=== PATIENT | female | born 1950 | race Caucasian/White ===

== ENCOUNTER 2018-02-06 18:45 | Observation (INO) | payer MEDICARE ==
[2018-02-06] MEDS ORDERED: Sodium Chloride 0.9% 10 ML Syringe FLUSH PRN (18:48)
[2018-02-06] MEDS ORDERED: Aspirin 81 MG Tab.Chew PO ONE (18:48)
[2018-02-06] MEDS ORDERED: Nitroglycerin 0.4 MG Tab.SL SL PRN (18:48)
[2018-02-06] MEDS ORDERED: Sodium Chloride 0.9% 2.5 ML Syringe FLUSH PRN (18:48)
[2018-02-06] MEDS ORDERED: Ketorolac 30 MG/ML SDV IVPUSH ONE (19:04)
--- NOTE | 2018-02-06 19:07 | EDM.PDOC ---
ED HPI GENERAL MEDICAL PROBLEM - General Chief Complaint: Chest Pain Stated Complaint: CHEST DISCOMFORT Time Seen by Provider: 02/06/18 18:47 Source of Information: Reports: Patient History Limitations: Reports: No Limitations - History of Present Illness INITIAL COMMENTS - FREE TEXT/NARRATIVE: HISTORY AND PHYSICAL: History of present illness: Patient is a 67-year-old female who presents to the emergency room today with complaints of head and neck pain after falling yesterday morning. She states she tripped and fell hitting the back of her head, no loss of consciousness. She does have muscular tenderness to the trapezius muscles bilaterally. This morning she started to have right sided anterior chest pain and numbness to her left breast. She denies any fever, chills, shortness of breath, cough. Denies any abdominal pain, nausea, vomiting, diarrhea or constipation. No headache, change in vision or change in mentation. Past medical history of quadruple bypass and Type DM II. Review of systems: As per history of present illness and below otherwise all systems reviewed and negative. Past medical history: As per history of present illness and as reviewed below otherwise noncontributory. Surgical history: As per history of present illness and as reviewed below otherwise noncontributory. Social history: No reported history of drug or alcohol abuse. Family history: As per history of present illness and as reviewed below otherwise noncontributory. Physical exam: General: Well-developed and well-nourished 67-year-old female. Alert and oriented. Nontoxic appearing and in no acute distress. HEENT: Atraumatic, normocephalic, pupils equal and reactive bilaterally, negative for conjunctival pallor or scleral icterus, mucous membranes moist, throat clear, neck supple, nontender, trachea midline. No drooling or trismus noted. No meningeal signs Lungs: Clear to auscultation, breath sounds equal bilaterally, chest nontender. Heart: S1S2, regular rate and rhythm without overt murmur Abdomen: Soft, nondistended, nontender. Negative for masses or hepatosplenomegaly. Negative for costovertebral tenderness. Pelvis: Stable nontender. Genitourinary: Deferred. Rectal: Deferred. Skin: Intact, warm, dry. No lesions or rashes noted. Extremities: Atraumatic, negative for cords or calf pain. Neurovascular unremarkable. Neuro: Awake, alert, oriented. Cranial nerves II through XII unremarkable. Cerebellum unremarkable. Motor and sensory unremarkable throughout. Exam nonfocal. Notes: There is no previous medical records or EKGs for comparison. A cardiac workup along with head and neck CT will be completed at this time. Patient's vitals are currently stable. Head and neck CT are within normal limits. Chest x-ray shows no evidence of pneumonia or infiltrate. Lab work is unremarkable. Though nonreproducible, patient's pain appears to be musculature in nature but Due to the patient's history and previous complaints and would like to keep her for observation with telemetry to do serial troponins. Patient is aware of this and agreeable to staying. She is currently pain-free. Diagnostics: CBC, CMP, troponin, EKG, one view chest, CT head, CT cervical spine Therapeutics: Aspirin, nitroglycerin, Toradol, IV fluid Impression: Chest pain r/o ID Head injury Plan: Observation with Telemetry Definitive disposition and diagnosis as appropriate pending reevaluation and review of above. Chest Pain Score (Numeric/FACES): 4 - Related Data Allergies Allergy/AdvReac Type Severity Reaction Status Date / Time No Known Allergies Allergy Verified 02/06/18 18:59 Home Meds: Home Meds Aspirin [Halfprin] 81 mg PO DAILY 02/06/18 [History] Fenofibrate Nanocrystallized [Fenofibrate] 48 mg PO DAILY 02/06/18 [History] Insulin Degludec [Tresiba Flextouch U-200] 8 units SQ DAILY 02/06/18 [History] Losartan/Hydrochlorothiazide [Losartan-HCTZ 100-25 MG] 1 each PO DAILY 02/06/18 [History] Metoprolol Tartrate [Lopressor] 25 mg PO Q12HR 02/06/18 [History] Zolpidem [Ambien] 5 mg PO BEDTIME PRN 02/06/18 [History] atorvaSTATin [Lipitor] 40 mg PO BEDTIME 02/06/18 [History] glipiZIDE [Glipizide ER] 10 mg PO DAILY 02/06/18 [History] metFORMIN HCl [Metformin HCl ER] 1,000 mg PO DAILY 02/06/18 [History] Past Medical History Cardiovascular History: Reports: Bypass Endocrine/Metabolic History: Reports: Diabetes, Type II Social & Family History - Tobacco Use Smoking Status *Q: Current Every Day Smoker Years of Tobacco use: 40 Packs/Tins Daily: 0.5 ED ROS GENERAL - Review of Systems Review Of Systems: ROS reveals no pertinent complaints other than HPI. ED EXAM, GENERAL - Physical Exam Exam: See Below (See dictation) Course - Vital Signs Last Recorded V/S: Last Vital Signs Temp Pulse 67 02/06/18 18:57 Resp 18 02/06/18 18:57 BP 154/50 H 02/06/18 18:57 Pulse Ox 96 02/06/18 18:57 - Orders/Labs/Meds Orders: Active Orders 24 hr Category Date Time Status EKG Documentation Completion [RC] STAT Care 02/06/18 18:47 Active Cervical Spine wo Cont [CT] Stat Exams 02/06/18 19:03 Taken Chest 1V Frontal [CR] Stat Exams 02/06/18 18:47 Taken Head wo Cont [CT] Stat Exams 02/06/18 18:59 Taken CBC WITH AUTO DIFF [HEME] Stat Lab 02/06/18 18:55 Received COMPREHENSIVE METABOLIC PN,CMP [CHEM] Stat Lab 02/06/18 18:55 Received TROPONIN I [CHEM] Stat Lab 02/06/18 18:55 Received Nitroglycerin [Nitrostat] Med 02/06/18 18:48 Active 0.4 mg SL Q5M PRN Sodium Chloride 0.9% [Normal Saline] 1,000 ml Med 02/06/18 19:09 Active IV STAT Sodium Chloride 0.9% [Saline Flush] Med 02/06/18 18:48 Active 10 ml FLUSH ASDIRECTED PRN Sodium Chloride 0.9% [Saline Flush] Med 02/06/18 18:48 Active 2.5 ml FLUSH ASDIRECTED PRN Saline Lock Insert [OM.PC] Stat Oth 02/06/18 18:48 Ordered Medication Orders Sodium Chloride (Normal Saline) 1,000 mls @ 125 mls/hr IV STAT ONE Stop: 02/07/18 03:08 Last Admin: 02/06/18 20:44 Dose: 125 mls/hr Nitroglycerin (Nitrostat) 0.4 mg SL Q5M PRN PRN Reason: Chest Pain Sodium Chloride (Saline Flush) 10 ml FLUSH ASDIRECTED PRN PRN Reason: Keep Vein Open Sodium Chloride (Saline Flush) 2.5 ml FLUSH ASDIRECTED PRN PRN Reason: Keep Vein Open Meds: Medications Generic Name Dose Route Start Last Admin Trade Name Freq PRN Reason Stop Dose Admin Sodium Chloride 1,000 mls @ 125 mls/hr 02/06/18 19:09 02/06/18 20:44 Normal Saline IV 02/07/18 03:08 125 mls/hr STAT ONE Administration Nitroglycerin 0.4 mg 02/06/18 18:48 Nitrostat SL Q5M PRN Chest Pain Sodium Chloride 10 ml 02/06/18 18:48 Saline Flush FLUSH ASDIRECTED PRN Keep Vein Open Sodium Chloride 2.5 ml 02/06/18 18:48 Saline Flush FLUSH ASDIRECTED PRN Keep Vein Open Discontinued Medications Generic Name Dose Route Start Last Admin Trade Name Freq PRN Reason Stop Dose Admin Aspirin 324 mg 02/06/18 18:48 02/06/18 20:44 Aspirin PO 02/06/18 18:49 324 mg ONETIME ONE Administration Ketorolac Tromethamine 30 mg 02/06/18 19:04 02/06/18 20:45 Toradol IVPUSH 02/06/18 19:05 30 mg ONETIME ONE Administration Departure - Departure Time of Disposition: 20:51 Disposition: Refer to Observation Clinical Impression: Chest pain, rule out acute myocardial infarction Head injury Qualifiers: Encounter type: initial encounter Qualified Code(s): S09.90XA - Unspecified injury of head, initial encounter Referrals: PCP,None [Primary Care Provider] - Forms: ED Department Discharge - My Orders Last 24 Hours: My Active Orders 02/06/18 18:47 EKG Documentation Completion [RC] STAT Chest 1V Frontal [CR] Stat 02/06/18 18:48 Nitroglycerin [Nitrostat] 0.4 mg SL Q5M PRN Sodium Chloride 0.9% [Saline Flush] 10 ml FLUSH ASDIRECTED PRN Sodium Chloride 0.9% [Saline Flush] 2.5 ml FLUSH ASDIRECTED PRN Saline Lock Insert [OM.PC] Stat 02/06/18 18:55 CBC WITH AUTO DIFF [HEME] Stat COMPREHENSIVE METABOLIC PN,CMP [CHEM] Stat TROPONIN I [CHEM] Stat 02/06/18 18:59 Head wo Cont [CT] Stat 02/06/18 19:03 Cervical Spine wo Cont [CT] Stat 02/06/18 19:09 Sodium Chloride 0.9% [Normal Saline] 1,000 ml IV STAT - Assessment/Plan Last 24 Hours: My Active Orders 02/06/18 18:47 EKG Documentation Completion [RC] STAT Chest 1V Frontal [CR] Stat 02/06/18 18:48 Nitroglycerin [Nitrostat] 0.4 mg SL Q5M PRN Sodium Chloride 0.9% [Saline Flush] 10 ml FLUSH ASDIRECTED PRN Sodium Chloride 0.9% [Saline Flush] 2.5 ml FLUSH ASDIRECTED PRN Saline Lock Insert [OM.PC] Stat 02/06/18 18:55 CBC WITH AUTO DIFF [HEME] Stat COMPREHENSIVE METABOLIC PN,CMP [CHEM] Stat TROPONIN I [CHEM] Stat 02/06/18 18:59 Head wo Cont [CT] Stat 02/06/18 19:03 Cervical Spine wo Cont [CT] Stat 02/06/18 19:09 Sodium Chloride 0.9% [Normal Saline] 1,000 ml IV STAT
[2018-02-06] MEDS ORDERED: Sodium Chloride 0.9% 1,000 ML IV ONE (19:09)
[2018-02-06 21:05] LABS: CHLORIDE,CL 102 mmol/L (98-107); SODIUM,NA 134 mmol/L (136-145)
[2018-02-06] MEDS ORDERED: Ondansetron 4 MG/2 ML SDV IVPUSH PRN (22:32)
[2018-02-06] MEDS: Acetaminophen 325 MG Tab PO PRN (23:26)
[2018-02-06] MEDS ORDERED: Pantoprazole 40 MG Vial ONE (23:42)
[2018-02-06] MEDS ORDERED: Pantoprazole 40 MG Tab.CR ONE (23:49)
[2018-02-07] MEDS: Acetaminophen 325 MG Tab PO PRN (06:44)
[2018-02-07] MEDS ORDERED: Insulin Aspart 100 Units/ML 3 ML Pen SUBCUT SCH (07:30)
[2018-02-07] MEDS ORDERED: Hydrochlorothiazide/Losartan 12.5-50 mg Tab PO SCH ×2 (09:00→21:00)
[2018-02-07] MEDS ORDERED: Metoprolol Tartrate 25 MG Tab PO SCH (09:00)
[2018-02-07] MEDS ORDERED: FENOFIBRATE 48 MG PO SCH (09:00)
--- NOTE | 2018-02-07 09:30 | PCM.HP ---
H&P History of Present Illness - General Date of Service: 02/06/18 Admit Problem/Dx: Admission Diagnosis/Problem Admission Diagnosis/Problem Chest pain, rule out acute myocardial infarction - History of Present Illness Initial Comments - Free Text/Narative: 67 yo female with pmh of CAD, CABG, HTN, and DM who fell yesterday and landed on her back and head. She has reported head and neck pain and on the day of admission she had some right sided chest wall pain. In the ED she had normal CT head and neck. EKG and troponin did not show any signs of ischemia. The ED provider referred for admission to rule out ACS. Chest Pain Score (Numeric/FACES): 1 Head Pain Score (Numeric/FACES): 4 - Related Data Allergies/Adverse Reactions: Allergies Allergy/AdvReac Type Severity Reaction Status Date / Time No Known Allergies Allergy Verified 02/06/18 18:59 Home Medications: Home Meds Aspirin [Halfprin] 81 mg PO DAILY 02/06/18 [History] Fenofibrate Nanocrystallized [Fenofibrate] 48 mg PO DAILY 02/06/18 [History] Insulin Degludec [Tresiba Flextouch U-200] 8 units SQ DAILY 02/06/18 [History] Losartan/Hydrochlorothiazide [Losartan-HCTZ 100-25 MG] 1 each PO DAILY 02/06/18 [History] Metoprolol Tartrate [Lopressor] 25 mg PO Q12HR 02/06/18 [History] Zolpidem [Ambien] 5 mg PO BEDTIME PRN 02/06/18 [History] atorvaSTATin [Lipitor] 40 mg PO BEDTIME 02/06/18 [History] glipiZIDE [Glipizide ER] 10 mg PO DAILY 02/06/18 [History] metFORMIN HCl [Metformin HCl ER] 1,000 mg PO DAILY 02/06/18 [History] Past Medical History HEENT History: Reports: Glaucoma Cardiovascular History: Reports: Bypass Endocrine/Metabolic History: Reports: Diabetes, Type II - Past Surgical History HEENT Surgical History: Reports: Other (See Below) Other HEENT Surgeries/Procedures: UNKNOWN EYE SURGERY Female Surgical History: Reports: Tubal Ligation Social & Family History - Tobacco Use Smoking Status *Q: Current Every Day Smoker Years of Tobacco use: 48 Packs/Tins Daily: 0.2 Used Tobacco, but Quit: Yes Month/Year Tobacco Last Used: JANUARY/2018 Second Hand Smoke Exposure: No - Caffeine Use Caffeine Use: Reports: None - Recreational Drug Use Recreational Drug Use: No H&P Review of Systems - Review of Systems: Review Of Systems: ROS reveals no pertinent complaints other than HPI. Exam - Exam Exam: See Below - Vital Signs Vital Signs: Last Vital Signs Temp 36.2 C 02/07/18 08:00 Pulse 54 L 02/07/18 08:10 Resp 16 02/07/18 08:00 BP 129/58 L 02/07/18 08:10 Pulse Ox 98 02/07/18 08:00 Weight: 162.4 kg - Exam General: Alert, Oriented Neck: Supple, Trachea Midline Lungs: Clear to Auscultation, Normal Respiratory Effort Cardiovascular: Regular Rate, Regular Rhythm GI/Abdominal Exam: Normal Bowel Sounds, Soft, Non-Tender Extremities: Normal Inspection, Normal Range of Motion, Non-Tender. No: No Pedal Edema Skin: Warm, Dry, Intact - Patient Data Lab Results Last 24 hrs: Laboratory Results - last 24 hr 02/06/18 02/06/18 02/07/18 Range/Units 18:55 18:55 00:40 WBC 8.59 (4.0-11.0) K/uL RBC 3.93 L (4.30-5.90) M/uL Hgb 12.1 (12.0-16.0) g/dL Hct 33.9 L (36.0-46.0) % MCV 86.3 (80.0-98.0) fL MCH 30.8 (27.0-32.0) pg MCHC 35.7 (31.0-37.0) g/dL RDW Std Deviation 40.4 (28.0-62.0) fl RDW Coeff of Cha 13 (11.0-15.0) % Plt Count 232 (150-400) K/uL MPV 9.50 (7.40-12.00) fL Neut % (Auto) 56.0 (48.0-80.0) % Lymph % (Auto) 28.9 (16.0-40.0) % [place] % (Auto) 10.6 (0.0-15.0) % Eos % (Auto) 4.0 (0.0-7.0) % Baso % (Auto) 0.5 (0.0-1.5) % Neut # (Auto) 4.8 (1.4-5.7) K/uL Lymph # (Auto) 2.5 H (0.6-2.4) K/uL [place] # (Auto) 0.9 H (0.0-0.8) K/uL Eos # (Auto) 0.3 (0.0-0.7) K/uL Baso # (Auto) 0.0 (0.0-0.1) K/uL Nucleated RBC % 0.0 /100WBC Nucleated RBCs # 0 K/uL Sodium 134 L (136-145) mmol/L Potassium 3.8 (3.5-5.1) mmol/L Chloride 102 (98-107) mmol/L Carbon Dioxide 25.7 (21.0-32.0) mmol/L BUN 27 H (7.0-18.0) mg/dL Creatinine 1.2 H (0.6-1.0) mg/dL Est Cr Clr Drug Dosing 34.80 mL/min Estimated GFR (MDRD) 44.9 ml/min Glucose 283 H (74-106) mg/dL POC Glucose (60-110) mg/dL Calcium 9.3 (8.5-10.1) mg/dL Total Bilirubin 0.4 (0.2-1.0) mg/dL AST 29 (15-37) IU/L ALT 39 (14-63) IU/L Alkaline Phosphatase 124 H (46-116) U/L Troponin I < 0.050 < 0.050 (0.000-0.056) ng/mL Total Protein 7.3 (6.4-8.2) g/dL Albumin 3.8 (3.4-5.0) g/dL Globulin 3.5 (2.0-3.5) g/dL Albumin/Globulin Ratio 1.1 L (1.3-2.8) 02/07/18 02/07/18 Range/Units 06:26 07:04 WBC (4.0-11.0) K/uL RBC (4.30-5.90) M/uL Hgb (12.0-16.0) g/dL Hct (36.0-46.0) % MCV (80.0-98.0) fL MCH (27.0-32.0) pg MCHC (31.0-37.0) g/dL RDW Std Deviation (28.0-62.0) fl RDW Coeff of Cha (11.0-15.0) % Plt Count (150-400) K/uL MPV (7.40-12.00) fL Neut % (Auto) (48.0-80.0) % Lymph % (Auto) (16.0-40.0) % [place] % (Auto) (0.0-15.0) % Eos % (Auto) (0.0-7.0) % Baso % (Auto) (0.0-1.5) % Neut # (Auto) (1.4-5.7) K/uL Lymph # (Auto) (0.6-2.4) K/uL [place] # (Auto) (0.0-0.8) K/uL Eos # (Auto) (0.0-0.7) K/uL Baso # (Auto) (0.0-0.1) K/uL Nucleated RBC % /100WBC Nucleated RBCs # K/uL Sodium (136-145) mmol/L Potassium (3.5-5.1) mmol/L Chloride (98-107) mmol/L Carbon Dioxide (21.0-32.0) mmol/L BUN (7.0-18.0) mg/dL Creatinine (0.6-1.0) mg/dL Est Cr Clr Drug Dosing mL/min Estimated GFR (MDRD) ml/min Glucose (74-106) mg/dL POC Glucose 61 (60-110) mg/dL Calcium (8.5-10.1) mg/dL Total Bilirubin (0.2-1.0) mg/dL AST (15-37) IU/L ALT (14-63) IU/L Alkaline Phosphatase (46-116) U/L Troponin I < 0.050 (0.000-0.056) ng/mL Total Protein (6.4-8.2) g/dL Albumin (3.4-5.0) g/dL Globulin (2.0-3.5) g/dL Albumin/Globulin Ratio (1.3-2.8) Result Diagrams: 02/06/18 18:55 02/06/18 18:55 Problem List Initiated/Reviewed/Updated: Yes Orders Last 24hrs: Active Orders 24 hr Category Date Time Status Admission Status [Patient Status] [ADT] Stat ADT 02/06/18 20:53 Active Accu Check [Blood Glucose Check, Bedside] [RC] TIDAC Care 02/06/18 22:29 Active Communication Order [RC] [id number] Care 02/07/18 09:00 Active Ready for Discharge [RC] PER UNIT ROUTINE Care 02/07/18 09:24 Ordered [employer] Discontinue [Cardiac Monitoring Care 02/07/18 09:25 Active Discontinue] [RC] Click to Edit Telemetry Monitoring [Cardiac Monitoring] [RC] Q8H Care 02/06/18 21:15 Active ADA Diabetic [Citizen [place] Diabetic Association Diet] [DIET Diet 02/07/18 Breakfast Active ] Cervical Spine wo Cont [CT] Stat Exams 02/06/18 19:03 Taken Chest 1V Frontal [CR] Stat Exams 02/06/18 18:47 Taken Head wo Cont [CT] Stat Exams 02/06/18 18:59 Taken Acetaminophen [Tylenol] Med 02/06/18 22:34 Active 650 mg PO Q6H PRN Aspirin [Halfprin] Med 02/07/18 21:00 Active 81 mg PO BEDTIME Hydrochlorothiazide/Losartan [Hyzaar 50-12.5 MG] Med 02/07/18 21:00 Active 2 tab PO BEDTIME Insulin Aspart [NovoLOG] Med 02/07/18 07:30 Active See Protocol SUBCUT TIDAC Metoprolol Tartrate [Lopressor] Med 02/07/18 09:00 Active 25 mg PO Q12HR Nitroglycerin [Nitrostat] Med 02/06/18 18:48 Active 0.4 mg SL Q5M PRN Ondansetron [Zofran] Med 02/06/18 22:32 Active 4 mg IVPUSH Q3H PRN Pantoprazole [ProTONIX] Med 02/07/18 21:00 Active 40 mg PO BEDTIME Patient's Own Medication [Ptom] Med 02/07/18 09:00 Active 1 each PO DAILY Sodium Chloride 0.9% [Saline Flush] Med 02/06/18 18:48 Active 10 ml FLUSH ASDIRECTED PRN Sodium Chloride 0.9% [Saline Flush] Med 02/06/18 18:48 Active 2.5 ml FLUSH ASDIRECTED PRN Zaleplon [Sonata] Med 02/06/18 22:29 Active 5 mg PO BEDTIME PRN atorvaSTATin [Lipitor] Med 02/07/18 21:00 Active 40 mg PO BEDTIME Saline Lock Insert [OM.PC] Stat Oth 02/06/18 18:48 Ordered Medication Orders Acetaminophen (Tylenol) 650 mg PO Q6H PRN PRN Reason: Pain Last Admin: 02/07/18 06:44 Dose: 650 mg Admin: 02/06/18 23:26 Dose: 650 mg Aspirin (Halfprin) 81 mg PO BEDTIME ELLIE Atorvastatin Calcium (Lipitor) 40 mg PO BEDTIME ELLIE HCTZ/Losartan Potassium (Hyzaar 50-12.5 Mg) 2 tab PO BEDTIME ELLIE Insulin Aspart (Novolog) 0 unit SUBCUT TIDAC [facility]; Protocol Last Admin: 02/07/18 06:53 Dose: Not Given Metoprolol Tartrate (Lopressor) 25 mg PO Q12HR [facility] Last Admin: 02/07/18 08:10 Dose: 25 mg Nitroglycerin (Nitrostat) 0.4 mg SL Q5M PRN PRN Reason: Chest Pain Ondansetron HCl (Zofran) 4 mg IVPUSH Q3H PRN PRN Reason: Nausea Pantoprazole Sodium (Protonix) 40 mg PO BEDTIME [facility] Last Admin: 02/06/18 23:50 Dose: 40 mg Fenofibrate 48 Mg 1 each PO DAILY [facility] Last Admin: 02/07/18 08:11 Dose: 1 each Sodium Chloride (Saline Flush) 10 ml FLUSH ASDIRECTED PRN PRN Reason: Keep Vein Open Sodium Chloride (Saline Flush) 2.5 ml FLUSH ASDIRECTED PRN PRN Reason: Keep Vein Open Zaleplon (Sonata) 5 mg PO BEDTIME PRN PRN Reason: Sleep Assessment/Plan Comment:: 67 yo female who has ruled out for acute coronary syndrome with serial negative cardiac enzymes. Patient was discharged home to have follow up with her manager of care.
[2018-02-07] MEDS ORDERED: Pantoprazole 40 MG Tab.CR PO SCH (21:00)
[2018-02-07] MEDS ORDERED: Aspirin 81 MG Tab.EC PO SCH (21:00)
[2018-02-07] MEDS ORDERED: atorvaSTATin 40 MG Tab PO SCH (21:00)
--- NOTE | 2018-02-08 20:24 | CT ---
EXAM DATE: 02/06/18 PATIENT'S AGE: 67 Patient: MARCELLE RODRIGUEZ Facility: [place], [place] Site . Site : 1950 Study: CT Spine Cervical [id number]/7/2018 8:10:53 PM Ordering Physician: Doctor Dickinson Final Report: INDICATION: Fell and hit head yesterday. Neck pain TECHNIQUE: CT cervical spine without i.v. contrast. Coronal and sagittal reformats were obtained. CONTRAST: None COMPARISON: None FINDINGS: Alignment: Mild kyphosis of the upper cervical spine is noted. Trace anterolisthesis C3-4 seen. Bone: No acute fractures or aggressive bone lesions are identified. Disc: There are degenerative disc disease noted at C4-5, C5-6 and C6-7. Scattered facet osteoarthritis is noted bilaterally. Soft tissue: The prevertebral soft tissues are unremarkable in appearance. The visualized lung apices and mediastinum are unremarkable. IMPRESSION: 1. No acute osseous injuries are identified. Dictated by Lex Perez MD @ 02/06/2018 8:39:11 PM Please note that all CT scans at this facility use dose modulation, iterative reconstruction, and/or weight-based dosing when appropriate to reduce radiation dose to as low as reasonably achievable. Dictated by: Lex Perez MD @ 02/06/2018 20:39:14 (Electronic Signature) Report Signed by Proxy. [facility]
--- NOTE | 2018-02-08 20:25 | CR ---
EXAM DATE: 02/06/18 PATIENT'S AGE: 67 Patient: MARCELLE RODRIGUEZ Facility: [place], [place] Site . Site : 1950 Study: XRay Chest [id number]/7/[id number] 8:13:51 PM Ordering Physician: Doctor Dickinson Final Report: INDICATION: Chest pain. History of quadruple bypass. TECHNIQUE: Chest 1 view. COMPARISON: None FINDINGS: Cardiovascular and mediastinum: Heart size and vasculature are normal in caliber and appearance. Mediastinum is within normal limits. Sequelae of cardiac surgery noted. Lungs and pleural space: Lungs are clear. No pleural effusion. No pneumothorax. Bones and soft tissues: No acute findings. IMPRESSION: No acute pulmonary process. Dictated by Lemuel Arana MD @ 02/06/2018 8:36:23 PM Dictated by: Lemuel Arana MD @ 02/06/2018 20:36:28 (Electronic Signature) Report Signed by Proxy. [facility]
--- NOTE | 2018-02-08 20:26 | CT ---
EXAM DATE: 02/06/18 PATIENT'S AGE: 67 Patient: MARCELLE RODRIGUEZ Facility: [place], [place] Site . Site : 1950 Study: CT Head [id number]/7/[id number] 8:14:27 PM Ordering Physician: Doctor Dickinson Final Report: INDICATION: Fell and hit head yesterday TECHNIQUE: Head CT without contrast. COMPARISON: None FINDINGS: CSF spaces: Within normal limits for age. Brain parenchyma: There are very mild nonspecific low attenuation white matter changes consistent with chronic microvascular disease. No sign of mass, hemorrhage, or midline shift. Skull base and calvarium: The visualized paranasal sinuses and mastoid air cells demonstrate no acute or significant findings. The visualized orbits are grossly unremarkable. No skull fractures. There is intracranial atherosclerosis. IMPRESSION: 1. No acute findings. 2. Mild nonspecific white matter disease, typical of chronic microvascular disease. Please note that all CT scans at this facility use dose modulation, iterative reconstruction, and/or weight-based dosing when appropriate to reduce radiation dose to as low as reasonably achievable. Dictated by Davina Parsons MD @ Feb 06 2018 8:39PM (Electronic Signature) Report Signed by Proxy. [facility]
== END 2018-02-07 09:54 | disposition home or self-care (01) ==
LOC: MW.ED 18:45 → MW.ICU 20:53
PROVIDERS: ADMIT Internal Medicine; ATTEND Internal Medicine
DX: R07.9 Chest pain, unspecified (principal); I25.10 Atherosclerotic heart disease of native coronary artery without angina pectoris; I10 Essential (primary) hypertension; E11.9 Type 2 diabetes mellitus without complications; F17.210 Nicotine dependence, cigarettes, uncomplicated; Z79.4 Long term (current) use of insulin; Z79.82 Long term (current) use of aspirin; Z79.899 Other long term (current) drug therapy; Z91.81 History of falling
CPT/HCPCS: 36415; 70450; 71045; 72125; 80053; 82962; 84484; 85025; 93005; 96361; 96374; 99285; A9270; G0378; J1885; J7040

== ENCOUNTER 2019-03-01 17:38 | Emergency (ER) | payer MEDICARE ==
[2019-03-01] MEDS ORDERED: HYDROmorphone 2 MG/ML SDV IVPUSH ONE ×2 (18:04→18:08)
[2019-03-01] MEDS ORDERED: HYDROmorphone 2 MG/ML Syringe ONE (18:10)
[2019-03-01] MEDS ORDERED: Sodium Chloride 0.9% 500 ML IV SCH (18:15)
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
[2019-03-01] MEDS ORDERED: Ondansetron 4 MG/2 ML SDV IVPUSH ONE (19:30)
[2019-03-01] MEDS ORDERED: Ondansetron 4 MG/2 ML SDV ONE (19:31)
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
--- NOTE | 2019-03-01 19:51 | CR ---
INDICATION: Elbow dislocation status Post reduction TECHNIQUE: Elbow radiograph 3 views left COMPARISON: 03/01/2019 FINDINGS: Bone: No acute fractures or aggressive bone lesions are identified. Joint: The elbow joint is unremarkable. No significant displacement of the anterior or posterior fat pads noted to suggest an effusion. Soft tissue: Unremarkable. No radiopaque foreign bodies are seen. IMPRESSION: 1. The elbow has been reduced to anatomic alignment. Dictated by: Lex Perez MD @ 03/01/2019 19:49:33 (Electronically Signed)
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
== END 2019-03-01 19:50 | disposition home or self-care (01) ==
LOC: MW.ED 17:38
DX: S53.125A Posterior dislocation of left ulnohumeral joint, initial encounter (principal); E11.9 Type 2 diabetes mellitus without complications; Z79.82 Long term (current) use of aspirin; Z79.4 Long term (current) use of insulin; Z98.51 Tubal ligation status; Z87.891 Personal history of nicotine dependence; Y04.0XXA Assault by unarmed brawl or fight, initial encounter
CPT/HCPCS: 24600; 73030; 73070; 73080; 73110; 82962; 96361; 96374; 96375; 99283; J1170; J2405; J7040